=== PATIENT | male | born 2000 | race Caucasian/White ===

== ENCOUNTER 2019-10-20 16:06 | Emergency (ER) | payer OTHER ==
[~2019-10-20] VITALS: Ht 167.6 cm; Wt 48.2 kg
[2019-10-20 16:14] VITALS: BP 128/56; TEMP 98.9
[2019-10-20 17:28] LABS: C-REACTIVE PROTEIN 8.2 mg/dL (0.0-0.9)
[2019-10-20] MEDS ORDERED: LIALDA 1.2 GM1.2 GM PO (17:48)
[2019-10-20] MEDS ORDERED: NORCO 325 MG-51 TAB PO (17:48)
[2019-10-20 17:56] VITALS: PULSE 99
[2019-10-20 17:56] LABS: TSH w REFLEX 0.665 uIU/mL (0.465-4.680)
== END 2019-10-20 17:56 | disposition home or self-care (01) ==
LOC: COL.ER 16:06
PROVIDERS: Emergency Medicine
DX: K52.9 Noninfective gastroenteritis and colitis, unspecified (principal)
CPT/HCPCS: J7030; Q9967

== ENCOUNTER 2019-12-13 07:08 | Day surgery (SDC) | payer OTHER ==
[~2019-12-13] VITALS: Ht 172.7 cm; Wt 44.7 kg
[~2019-12-13 07:08] MED LIST: LIALDA 1.2 GM1.2 GM PO; NORCO 325 MG-51 TAB PO
[2019-12-13 08:00] VITALS: BP 115/77; PULSE 74; TEMP 97.7
[2019-12-13] MEDS ORDERED: ENTOCORT EC3 MG PO (09:06)
[2019-12-13 09:15] VITALS: BP 96/62; PULSE 80
--- NOTE | 2019-12-13 09:15 | NUR ---
Patient returns to [facility] per cart and is awake and alert. Transfers from cart to recliner with one person assist. IV fluids infusing and call light in reach. Denies nausea or abdominal pain.
--- NOTE | 2019-12-13 09:25 | NUR ---
Dr. Natarajan in the room and talks with the patient and his grandfather on over the phone. All questions answered.
[2019-12-13 09:30] VITALS: BP 114/88; PULSE 67
--- NOTE | 2019-12-13 09:30 | NUR ---
Continues to deny pain or nausea.
[2019-12-13 09:45] VITALS: BP 117/61; PULSE 59
--- NOTE | 2019-12-13 09:45 | NUR ---
Lab drawn as ordered by Dr. Natarajan. Continues to deny pain or nausea.
--- NOTE | 2019-12-13 09:55 | NUR ---
IV discontinued and patient dresses self. Reviewed dismissal instructions with the patient.
--- NOTE | 2019-12-13 10:07 | NUR ---
Dismissal instructions signed and patient was able to dress self.
--- NOTE | 2019-12-13 10:10 | NUR ---
Patient dismissed to home driven by grandfather and taken to the front door per wheelchair and assisted into car by this RN and dismissal folder with the patient.
[2019-12-13 10:12] LABS: BASO % 0.8 % (0.0-2.0); EOS # 0.2 (0.0-0.7); EOS % 3.1 % (0-4.0); GRAN # 3.4 (1.4-6.5); GRAN % 67.2 % (42.2-75.2); HEMATOCRIT 40.4 % (36.0-47.0); HEMOGLOBIN 11.6 g/dl (12.5-16.1); LYMPH % 19.9 % (20.0-51.0); MEAN CELL VOLUME 78 fl (80.0-95.0); MEAN CORPUSCULAR HEMOGLOBIN 23 pg (26.0-32.0); MEAN CORPUSCULAR HGB CONC 29 g/dl (33.0-37.0); MEAN PLATELET VOLUME 8.8 fl (7.4-10.4); MONO # 0.4 (0.1-0.6); MONO % 8.4 % (1.7-9.3); PLATELET COUNT 316 K/mm3 (130-400); RED BLOOD COUNT 5.15 M/mm3 (4.20-5.60); REDCELL DISTRIBUTION WIDTH-CV 15.5 % (11.5-14.5)
[2019-12-13 10:25] LABS: ALBUMIN 3.6 gm/dL (3.5-5.0); BILIRUBIN,TOTAL 0.3 mg/dL (0.0-1.0); C-REACTIVE PROTEIN 3.8 mg/dL (0.0-0.9); CALCIUM 8.4 mg/dL (8.4-10.2); CREATININE, serum 0.57 (0.66-1.25); POTASSIUM 4.3 mmol/L (3.4-5.0); TOTAL PROTEIN 6.8 gm/dL (6.4-8.2)
[2019-12-13 20:51] LABS: HEPATITIS B SURFACE ANTIGEN Negative (Negative)
[2019-12-16 05:42] LABS: TB GOLD INTERPRETATION Negative (Negative)
== END 2019-12-13 10:10 | disposition home or self-care (01) ==
LOC: SDCO 07:08
PROVIDERS: Internal Medicine Gastroenterology
DX: K63.3 Ulcer of intestine (principal); K50.113 Crohn's disease of large intestine with fistula; K56.699 Other intestinal obstruction unspecified as to partial versus complete obstruction; K64.0 First degree hemorrhoids
CPT/HCPCS: J2704; J7030

== ENCOUNTER → 2020-05-17 | Outpatient (CLI) | payer OTHER ==
[~2020-05-17] MED LIST changes: +ENTOCORT EC3 MG PO
== END ==
LOC: COL.RAD 07:03
DX: K50.813 Crohn's disease of both small and large intestine with fistula (principal)
CPT/HCPCS: Q9967

== ENCOUNTER 2020-09-17 03:10 | Emergency (ER) | payer SELFPAY ==
[~2020-09-17] VITALS: Ht 167.6 cm; Wt 43.2 kg
[2020-09-17 03:12] VITALS: TEMP 98.3
[2020-09-17 03:39] LABS: COLLECTION METHOD CLEAN CATCH
[2020-09-17 03:51] LABS: MUCOUS Present /lpf; PH 5 (5-8); SQUAMOUS EPITHELIAL None Seen /hpf; URINE APPEARANCE Hazy; URINE BACTERIA None Seen /hpf; URINE BILIRUBIN Negative (NEGATIVE); URINE BLOOD Negative (NEGATIVE); URINE COLOR Yellow; URINE GLUCOSE Negative (NEGATIVE); URINE KETONE Negative (NEGATIVE); URINE LEUKOCYTE ESTERASE Negative (NEGATIVE); URINE NITRATE Negative (NEGATIVE); URINE PROTEIN(semi-quant) Negative (NEGATIVE); URINE RBC 0-2 /hpf; URINE UROBILINOGEN Negative (NEGATIVE)
[2020-09-17 03:52] LABS: TRICYCLIC ANTIDEPRESS URINE NEGATIVE
[2020-09-17 05:11] LABS: BASO % 0.4 % (0.0-2.0); EOS # 0.1 (0.0-0.7); EOS % 0.9 % (0-4.0); GRAN # 8.9 (1.4-6.5); GRAN % 78.9 % (42.2-75.2); HEMATOCRIT 40.7 % (36.0-47.0); HEMOGLOBIN 12.3 g/dl (12.5-16.1); LYMPH # 1.2 (1.2-3.4); MEAN CELL VOLUME 80 fl (80.0-95.0); MEAN CORPUSCULAR HEMOGLOBIN 24 pg (26.0-32.0); MEAN CORPUSCULAR HGB CONC 30 g/dl (33.0-37.0); MEAN PLATELET VOLUME 9.2 fl (7.4-10.4); MONO % 8.4 % (1.7-9.3); PLATELET COUNT 362 K/mm3 (130-400); RED BLOOD COUNT 5.09 M/mm3 (4.20-5.60); REDCELL DISTRIBUTION WIDTH-CV 14.7 % (11.5-14.5)
[2020-09-17 05:28] LABS: ACETAMINOPHEN 39 ug/mL (10-30); ALANINE AMINOTRANSFERASE 19 U/L (4-49); ALBUMIN 4.2 gm/dL (3.5-5.0); ALKALINE PHOSPHATASE 201 U/L (50-136); ANION GAP 11 mmol/L (7-16); AST,SGOT 24 U/L (15-37); BILIRUBIN,TOTAL 0.2 mg/dL (0.0-1.0); BLOOD UREA NITROGEN 7 mg/dL (9-20); CARBON DIOXIDE 24 mmol/L (22-30); CHLORIDE 106 mmol/L (98-107); CREATININE, serum 0.63 (0.66-1.25); GLUCOSE 114 mg/dL (74-106); POTASSIUM 3.7 mmol/L (3.4-5.0); SALICYLATE 15.4 mg/dL; SODIUM 141 mmol/L (137-145); TOTAL PROTEIN 7.2 gm/dL (6.4-8.2)
[2020-09-17 05:29] LABS: ALCOHOL(ethanol),MEDICAL < 10 mg/dL
[2020-09-17 11:30] VITALS: PULSE 92
[2020-09-17 13:06] VITALS: BP 140/77
== END 2020-09-17 13:06 | disposition home or self-care (01) ==
LOC: COL.ER 03:10
PROVIDERS: Emergency Medicine
DX: T40.2X2A Poisoning by other opioids, intentional self-harm, initial encounter (principal); T40.422A Poisoning by tramadol, intentional self-harm, initial encounter